=== PATIENT | female | born 1975 | race African-American/Black ===

== ENCOUNTER 2017-03-18 01:33 | Emergency (ER) | payer OTHER ==
--- NOTE | 2017-03-18 01:41 | Emergency Department Record ---
History of Present Illness - General Chief Complaint: Dizziness Stated Complaint: DIZZINESS/SOB Source: Patient, EMS Mode of Arrival: EMS Limitations: No limitations - History of Present Illness Initial Comments: 41 yo female presents to ED for evaluation of feeling light-headed and dizzy while at work tonight in the heat. Patient reports that when she left her work environment to rest, she felt better. Upon standing, she began to feel lightheaded again and sat back down. Patient reports that working in the heat may have been the etiology of her symptoms. Patient denies chest pain but does difficulty in breathing symptoms that have resolved. Patient denies fevers, chills, or recent illness. Patient denies health problems at her baseline. MD Complaint: Dizziness Onset/Timin -: Minutes(s) Timing: Gradual onset Description: Lightheadedness History of Same: No History of Trauma: No Severity: Moderate Improves With: Rest Worsens With: Other (standing) Associated Symptoms: Denies other symptoms - Olivia Coma Scale Eye Response: (4) Open spontaneously Motor Response: (6) Obeys commands Verbal Response: (5) Oriented Olivia Total: 15 - Related Data Previous Rx's Medication Instructions Recorded Clindamycin HCl 300 mg PO Q6H #28 capsule 03/18/17 Allergies Allergy/AdvReac Type Severity Reaction Status Date / Time No Known Drug Allergies Allergy Verified 03/18/17 01:35 Review of Systems Constitutional: Reports: Malaise, Weakness (generalized). Denies: Chills, Fever , Night sweats Eyes: Denies: Eye discharge, Eye pain ENT: Denies: Congestion, Ear pain, Epistaxis Respiratory: Reports: Dyspnea. Denies: Cough Cardiovascular: Denies: Chest pain, Dyspnea on exertion Endocrine: Denies: Fatigue, Heat or cold intolerance Gastrointestinal: Denies: Abdominal pain, Nausea, Vomiting Genitourinary: Denies: Incontinence, Retention Musculoskeletal: Denies: Arthralgia, Back pain, Gout, Joint swelling Skin: Denies: Bruising, Change in color Neurological: Reports: Headache. Denies: Abnormal gait, Confusion, Seizure Psychiatric: Denies: Anxiety Hematological/Lymphatic: Denies: Anemia, Blood Clots Physical Exam - General General Appearance: Alert, Oriented x3, Cooperative, Mild distress Limitations: No limitations - Head Head exam: Atraumatic, Normocephalic, Normal inspection Head exam detail: negative: Abrasion, Contusion, Kim's sign, General tenderness, Hematoma, Laceration - Eye Eye exam: Normal appearance. negative: Conjunctival injection, Periorbital swelling, Periorbital tenderness, Scleral icterus - ENT Ear exam: negative: Auricular hematoma, Auricular trauma Nasal Exam: negative: Active bleeding, Discharge, Dried blood, Foreign body Mouth exam: negative: Drooling, Laceration, Muffled voice, Tongue elevation - Neck Neck exam: Normal inspection. negative: Meningismus, Tenderness - Respiratory Respiratory exam: Normal lung sounds bilaterally. negative: Rales, Respiratory distress, Rhonchi, Stridor - Cardiovascular Cardiovascular Exam: Regular rate, Normal rhythm, Normal heart sounds - GI/Abdominal GI/Abdominal exam: Soft. negative: Rebound, Rigid, Tenderness - Rectal Rectal exam: Deferred - exam: Deferred - Extremities Extremities exam: Normal inspection. negative: Calf tenderness, Pedal edema, Tenderness - Back Back exam: Denies: CVA tenderness (R), CVA tenderness (L) - Neurological Neurological exam: Alert, Normal gait, Oriented X3 - Psychiatric Psychiatric exam: Normal affect, Normal mood - Skin Skin exam: Erythema, Normal color, Other (induration to the left buttock measuring approximately 4.5 cm c/w mild cellulitis to the left buttock.). negative: Abrasion Type of lesion: negative: abrasion Course - Reevaluation(s) Reevaluation #1: 03/18/17 01:45 EKG: NSR 65 Normal axis, normal intervals No acute ST-T wave changes. Reevaluation #2: 03/18/17 02:19 Labs reviewed, WBC 13.6, 83% Neutrophils. Hgb 11.4. Labs are otherwise grossly unremarkable for an acute process. Patient ambulated to the bathroom with steady gait. IVFs are infusing. Reevaluation #3: 03/18/17 02:44 Patient reassessed and reports that she is feeling much improved. Patient again ambulated to the bathroom with steady gait, and appears stable for discharge at this time. Medical Decision Making - Lab Data Result diagrams: 03/18/17 01:20 03/18/17 01:20 Disposition Disposition: Discharge Clinical Impression: Dehydration Cellulitis Qualifiers: Site of cellulitis: buttock Qualified Code(s): L03.317 - Cellulitis of buttock Disposition: Home, Self-Care Condition: (2) Stable Instructions: Cellulitis (ED) Additional Instructions: Return to ED if your symptoms worsen or if you have any concerns. Follow-up with employee health in 1-3 days as directed. Drink plenty of fluids. Prescriptions: Clindamycin HCl 300 mg PO Q6H #28 capsule Forms: Patient Portal Access Time of Disposition: 02:44 Quality - Quality Measures Quality Measures: N/A - Blood Pressure Screening Does Patient Have Any of the Following: No Blood Pressure Classification: Normal BP Reading Systolic Measurement: 117 Diastolic Measurement: 61 Screening for High Blood Pressure: < Normal BP, F/U Not Required > [[id number]]
[2017-03-18] MEDS: METOCLOPRAMIDE HCL 10 MG/2 ML VIAL IVP ONE (01:54)
[2017-03-18] MEDS: DIPHENHYDRAMINE HCL IV 50 MG/ML VIAL IVP ONE (01:54)
[2017-03-18] MEDS: 0.9 % SODIUM CHLORIDE 1000ML 1,000 ML IV SCH (01:54)
[2017-03-18 02:11] LABS: ALB/GLOB RATIO 1.4 (1.1-1.8); ALKALINE PHOSPHATASE 61 U/L (35-104); ALT/SGPT 13 U/L (<33); AST/SGOT 15 U/L (10.0-35.0); BLOOD UREA NITROGEN 8 mg/dL (6-20); CREATININE 0.6 mg/dL (0.5-0.9); EST GLOMERULAR FILTRATION RATE > 60 mL/min; GLUCOSE,RANDOM 123 mg/dL (74-109); TOTAL PROTEIN 6.8 g/dL (6.6-8.7)
[2017-03-18 02:14] LABS: HEMATOCRIT 34.4 % (35.0-47.0); HEMOGLOBIN 11.4 gm/dl (11.6-16.0); MEAN CELL VOLUME 85.6 fl (81-97); MEAN CORPUSCULAR HGB CONC 33.1 g/dl (32-36); MEAN PLATELET VOLUME 10.2 fl (7.4-10.4); PLATELET COUNT 330 K/uL (130-400); RED BLOOD COUNT 4.02 M/uL (3.80-5.40); RED CELL DISTRIBUTION WIDTH 16.2 % (11.5-14.5); WHITE BLOOD COUNT W/O DIFF 13.6 K/uL (4.2-12.2)
[2017-03-18 02:15] LABS: MEAN CORPUSCULAR HEMOGLOBIN 28.3 pg (27-33)
[2017-03-18 02:17] LABS: PLATELET ESTIMATE NORMAL (NORMAL)
[2017-03-18] MEDS: IBUPROFEN 600 MG TABLET PO ONE (03:21)
[2017-03-18] MEDS: CLINDAMYCIN 150 MG CAP PO ONE (03:21)
== END 2017-03-18 03:27 | disposition home or self-care (01) ==
LOC: ER 01:33
DX: E86.0 Dehydration (principal); L03.317 Cellulitis of buttock; R42 Dizziness and giddiness; R06.02 Shortness of breath; R51 Headache
CPT/HCPCS: 80053; 85027; 93005; 93010; 96374; 96375; 99284; J1200; J2765; J7030